=== PATIENT | female | born 1965 | race Caucasian/White ===

== ENCOUNTER → 2024-03-20 13:45 | Outpatient (REF) | payer OTHER, SELFPAY | LOC: WDC 13:45 | PROVIDERS: ATTENDING PHYSICIAN Obstetrics & Gynecology Gynecology; FAMILY PHYSICIAN Nurse Practitioner | DX: R92.8 Other abnormal and inconclusive findings on diagnostic imaging of breast (principal) | CPT/HCPCS: 76642 ==

== ENCOUNTER → 2024-08-14 13:42 | Outpatient (REF) | payer OTHER, SELFPAY | LOC: WDC 13:42 | PROVIDERS: ATTENDING PHYSICIAN Obstetrics & Gynecology Gynecology; FAMILY PHYSICIAN Nurse Practitioner | DX: M85.80 Other specified disorders of bone density and structure, unspecified site (principal); Z12.31 Encounter for screening mammogram for malignant neoplasm of breast | CPT/HCPCS: 77063; 77067; 77080 ==

== ENCOUNTER → 2024-10-19 14:00 | Outpatient (REF) | payer OTHER, SELFPAY | LOC: WDC 14:00 | PROVIDERS: ATTENDING PHYSICIAN Obstetrics & Gynecology Gynecology; FAMILY PHYSICIAN Nurse Practitioner | DX: R92.2 Inconclusive mammogram (principal) | CPT/HCPCS: 76641 ==

== ENCOUNTER → 2025-04-12 13:50 | Outpatient (REF) | payer OTHER, SELFPAY | LOC: WDC 13:50 | PROVIDERS: ATTENDING PHYSICIAN Obstetrics & Gynecology Gynecology; FAMILY PHYSICIAN Nurse Practitioner | DX: R92.8 Other abnormal and inconclusive findings on diagnostic imaging of breast (principal) | CPT/HCPCS: 76642 ==

== ENCOUNTER → 2025-08-21 13:59 | Outpatient (REF) | payer OTHER, SELFPAY | LOC: WDC 13:59 | PROVIDERS: ATTENDING PHYSICIAN Obstetrics & Gynecology Gynecology; FAMILY PHYSICIAN Nurse Practitioner | DX: Z12.31 Encounter for screening mammogram for malignant neoplasm of breast (principal) | CPT/HCPCS: 77063; 77067 ==